=== PATIENT | female | born 2000 | race Two or more races ===

== ENCOUNTER 2022-11-14 22:26 | Emergency (ER) | payer OTHER ==
[~2022-11-14] VITALS: Ht 162.6 cm; Wt 81.6 kg
[2022-11-15] MEDS ORDERED: CIPRO500 MG PO (05:45)
[2022-11-15] MEDS ORDERED: KETO10TA2 PO (05:47)
[2022-11-15] MEDS ORDERED: PYRIDIUM DS200 MG PO (05:47)
== END 2022-11-15 06:09 ==
LOC: ER 22:26
DX: R30.0 Dysuria (principal); R10.2 Pelvic and perineal pain

== ENCOUNTER → 2023-02-01 | Emergency (ER) | payer OTHER ==
[~2023-02-01] VITALS: Ht 165.1 cm; Wt 81.6 kg
[~2023-02-01] MED LIST: CIPRO500 MG PO; KETO10TA2 PO; PYRIDIUM DS200 MG PO
== END | disposition home or self-care (01) ==
LOC: ER 21:04
DX: R10.2 Pelvic and perineal pain (principal); R30.0 Dysuria

== ENCOUNTER 2023-06-09 21:58 | Emergency (ER) | payer OTHER ==
[~2023-06-09] VITALS: Ht 162.6 cm; Wt 84.4 kg
[2023-06-09 23:28] LABS: HEMATOCRIT 37.4 % (36.0-45.00); HEMOGLOBIN 12.9 g/dL (12.0-15.00); MEAN CELL VOLUME 88.8 fL (80.00-100.00); MEAN CORPUSCULAR HEMOGLOBIN 30.5 pg (27.00-32.0); MEAN CORPUSCULAR HGB CONC 34.3 g/dl (32.0-36.0); PLATELET COUNT 399 K/uL (150-450); RED BLOOD COUNT 4.22 M/uL (4.00-6.00); RED CELL DISTRIBUTION WIDTH 12.9 % (11.5-14.5)
[2023-06-10 00:31] LABS: ALBUMIN 4.2 gm/dL (3.4-5.0); BILIRUBIN TOTAL 0.38 mg/dL (0.3-1.2); BILIRUBIN,CONJUGATED 0.13 mg/dL (0.0-0.2); BILIRUBIN,UNCONJUGATED 0.25 mg/dL (0.0-0.6); CALCIUM 9.5 mg/dL (8.5-10.1); CREATININE SERUM 0.78 mg/dL (0.55-1.02); GFR 89.99; GLOBULINA 3.8 G/DL (2.4-3.5); POTASSIUM 3.65 mEq/L (3.5-5.1)
== END 2023-06-10 01:10 | disposition home or self-care (01) ==
LOC: ER 21:59
PROVIDERS: General Practice
DX: K30 Functional dyspepsia (principal); R10.11 Right upper quadrant pain; R10.9 Unspecified abdominal pain; Z91.040 Latex allergy status